=== PATIENT | male | born 1980 | race Two or more races ===

== ENCOUNTER 2017-12-24 18:57 | Emergency (ER) | payer MEDICAID ==
[~2017-12-24] VITALS: Ht 170.2 cm; Wt 72.6 kg
[2017-12-24 19:30] VITALS: BP 108/68
--- NOTE | 2017-12-24 19:54 | Emergency Room Report ---
History of Present Illness General Chief Complaint: Flu Like Symptoms Source: EMS Present Illness HPI 37-year-old male presents to the emergency department complaining of swelling, tenderness and pain in the right side of his lower jaw 5 days. Patient reports that he is now also having nausea. Patient denies episodes of vomiting. Patient denies abdominal pain, tenderness, constipation or diarrhea. Patient reports generalized malaise. He does not give much detail about history of present illness and ROS therefore patient has poor cooperation. He also gives different answers to the same questions asked by Provider and RN. He denies fevers reports some chills. Denies pain with swallowing HPI and ROS limited due to poor pt. cooperation and little to no detail regarding symptoms. Allergies: Coded Allergies: No Known Allergies (Unverified , 12/24/17) Patient History Past Medical History: see triage record Past Surgical History: unable to obtain Pertinent Family History: unable to obtain Reviewed Nursing Documentation: PMH: Agreed; PSxH: Agreed Nursing Documentation-PMH Past Medical History: No History, Except For Hx Neurological Problems: Yes - DEPRESSION Review of Systems All Other Systems: limited - poor pt. cooperation, limited details. Physical Exam Vital Signs Date Time Temp Pulse Resp B/P (MAP) Pulse Ox O2 Delivery O2 Flow Rate FiO2 12/24/17 18:58 99.8 110 20 108/68 98 Room Air 99.9 Sp02 EP Interpretation: reviewed, normal General Appearance: no apparent distress, alert, GCS 15, non-toxic, mild distress Head: normocephalic, atraumatic ENT: hearing grossly normal, normal pharynx, normal voice, TMs + canals normal , uvula midline, moist mucus membranes, other - swelling, palpable/fluctuant area of the right lower gumline, notable ST swelling externally to the right lower jaw area, no trismus, pulpitis of lower right premolar. no ttp under the tongue, no swelling noted of the neck . Neck: full range of motion, no meningismus, no bony tend Respiratory: lungs clear, normal breath sounds, speaking full sentences Cardiovascular #1: regular rate, rhythm, tachycardia Gastrointestinal: normal bowel sounds, non tender, soft, non-distended, no guarding Rectal: deferred Musculoskeletal: back normal, gait/station normal, normal range of motion, non- tender Neurologic: alert, oriented x3, responsive, motor strength/tone normal, sensory intact, speech normal, grossly normal Psychiatric: judgement/insight normal Skin: normal color, no rash, warm/dry, well hydrated Lymphatic: other - bilateral subparotid LAD Medical Decision Making PA Attestation Dr. Garber is my supervising Physician whom patient management has been discussed with. Diagnostic Impression: Primary Impression: Dental abscess Additional Impression: Nausea ER Course 37-year-old male presents to the emergency department complaining of swelling, tenderness and pain in the right side of his lower jaw 5 days. Patient reports that he is now also having nausea. Patient denies episodes of vomiting. Patient denies abdominal pain, tenderness, constipation or diarrhea. Patient reports generalized malaise. He does not give much detail about history of present illness and ROS therefore patient has poor cooperation. He also gives different answers to the same questions asked by Provider and RN. He denies fevers reports some chills. Denies pain with swallowing HPI and ROS limited due to poor pt. cooperation and little to no detail regarding symptoms. Ddx considered but are not limited to cellulitis, dental abscess, orbital cellulitis, d/l tooth, dental pain. trigeminal neuralgia. viral syndrome, GE, appendicitis, sepsis just to name a few. Vital signs: are WNL, pt. is afebrile H&PE are most consistent with dental abscess. with gum fluctuance and swelling. possible viral syndrome. pt. does not detail other symptoms initially mentioned on original cc/ hpi. ORDERS: none required at this time, the diagnosis is clinical ED INTERVENTIONS: -PCN IM 2.4 MIU ----I felt this patient would have poor follow-up and most likely will not follow discharge instructions therefore I wanted patient to receive a dose of IV antibiotics here however he refused. He did consent IM. -[place] PO Patient refuses incision and drainage He also does declines offer of IV antibiotics. Patient wants to be discharged with oral antibiotics only. --Encouraged patient multiple times that IND is necessary and that it is very important that he take oral antibiotics. Patient continues to decline medical recommendations. Discussed with patient that he'll be discharged with oral medications and to return immediately to emergency department with worsening or new symptoms otherwise he should follow up with a primary care provider and dentist. Patient was given both list of free dental clinics as well as free primary care clinics. DISCHARGE: At this time pt. is stable for d/c to home. Will provide printed patient care instructions, and any necessary prescriptions. Care plan and follow up instructions have been discussed with the patient prior to discharge. Last Vital Signs Date Time Temp Pulse Resp B/P (MAP) Pulse Ox O2 Delivery O2 Flow Rate FiO2 12/24/17 18:58 99.8 110 20 108/68 98 Room Air 99.9 Disposition: HOME, SELF-CARE Condition: Stable Scripts Ondansetron Odt* (ZOFRAN ODT*) 8 Mg Tab.rapdis 4 MG ORAL Q6H PRN for Nausea & Vomiting, #10 TAB Prov: Dayna Zamarripa 12/24/17 Ibuprofen* (MOTRIN*) 600 Mg Tablet 600 MG ORAL THREE TIMES A DAY, #20 TAB 0 Refills Prov: Dayna Zamarripa 12/24/17 Amoxicillin* (AMOXIL*) 500 Mg Capsule 500 MG ORAL EVERY 8 HOURS for 7 Days, #21 CAP Prov: Dayna Zamarripa 12/24/17 Referrals: [facility],REFERRING (PCP) Patient Instructions: Dental Abscess Additional Instructions: Take medications as directed. Follow up with a DENTIST AND Primary Care Provider WITHIN 48 HOURS, even if your symptoms have resolved. --Please review list of primary care clinics, if you do not already have a primary care provider Return sooner to ED if new symptoms occur, or current symptoms become worse OR if you Change your mind and would like us to Incise and Drain the abscess as recommended to you. - Please note that this Emergency Department Report was dictated using [employer] chill technician technology software, occasionally this can lead to erroneous entry secondary to interpretation by the dictation equipment. Dayna Zamarripa December 24, 2017 19:54
[2017-12-24] MEDS ORDERED: HYDROcodone/Acetamin 7.5/325 tab ORAL ONE (20:00)
[2017-12-24] MEDS ORDERED: Bicillin LA 2,400,000 units IM ONE (20:30)
[2017-12-24] MEDS ORDERED: ZOFRAN ODT8 MG ORAL (20:48)
[2017-12-24] MEDS ORDERED: AMOXICILLIN500 MG ORAL (20:48)
[2017-12-24] MEDS ORDERED: IBUPROFEN600 MG ORAL (20:48)
[2017-12-24 21:18] VITALS: BP 112/77
== END 2017-12-24 21:08 | disposition home or self-care (01) ==
LOC: EDBD 18:57 → EMR 19:29
DX: K04.7 Periapical abscess without sinus (principal); R11.0 Nausea; F32.9 Major depressive disorder, single episode, unspecified
CPT/HCPCS: 99284

== ENCOUNTER 2017-12-28 07:28 | Emergency (ER) | payer MEDICAID ==
[~2017-12-28] VITALS: Ht 172.7 cm; Wt 77.1 kg
[~2017-12-28 07:28] MED LIST: AMOXICILLIN500 MG ORAL; IBUPROFEN600 MG ORAL; ZOFRAN ODT8 MG ORAL
[2017-12-28 07:30] VITALS: BP 110/80
--- NOTE | 2017-12-28 08:04 | Emergency Room Report ---
History of Present Illness General Chief Complaint: Toothache Source: Patient Present Illness HPI Patient was brought in by paramedics for swelling to the right lower dental region He reports that this is been ongoing for the past 5 days Pain is worse with touch Denies any difficulty swallowing denies any chest pain Also biting is causing more discomfort Patient had dental problems in the past however cannot specify Denies any neck pain or photophobia denies any trismus Pain is 6 out of 10 localized to the lower dental region Allergies: Coded Allergies: No Known Allergies (Unverified , 12/24/17) Patient History Past Medical History: see triage record Pertinent Family History: none Reviewed Nursing Documentation: PMH: Agreed; PSxH: Agreed Nursing Documentation-PMH Past Medical History: No Stated History Hx Neurological Problems: Yes - DEPRESSION Review of Systems All Other Systems: negative except mentioned in HPI Physical Exam Vital Signs Date Time Temp Pulse Resp B/P (MAP) Pulse Ox O2 Delivery O2 Flow Rate FiO2 12/28/17 07:20 98.1 72 16 110/80 97 Room Air 98.1 Sp02 EP Interpretation: reviewed, normal General Appearance: well appearing, no apparent distress Head: normocephalic, atraumatic Eyes: bilateral eye PERRL, bilateral eye EOMI ENT: other - Swelling and irritation to the right lower gingival region, dental decay noted as well appearance of dental abscess Neck: full range of motion, supple Respiratory: lungs clear Cardiovascular #1: regular rate, rhythm Gastrointestinal: non tender Musculoskeletal: normal inspection Neurologic: alert, oriented x3, responsive Skin: normal color, other - Swelling to the right lower mandibular region Lymphatic: no adenopathy Medical Decision Making Diagnostic Impression: Primary Impression: Dental abscess ER Course Patient has clinical findings consistent with likely dental abscess Does not appear septic or toxic There is no signs of any trismus patient was provided with antibiotics and pain medication and requires close outpatient follow-up Last Vital Signs Date Time Temp Pulse Resp B/P (MAP) Pulse Ox O2 Delivery O2 Flow Rate FiO2 12/28/17 07:30 98.1 16 110/80 97 Room Air 98.1 12/28/17 07:20 72 Status: improved Disposition: HOME, SELF-CARE Condition: Stable Scripts Ibuprofen* (MOTRIN*) 600 Mg Tablet 600 MG ORAL Q8H PRN for For Pain, #20 TAB 0 Refills Prov: Jerod English DO 12/28/17 Amoxicillin/Potassium Clav 875-125* (AUGMENTIN 875-125 TABLET*) 1 Each Tablet 1 TAB ORAL TWICE A DAY, #20 TAB Prov: Jerod English DO 12/28/17 Additional Instructions: Patient is provided with the discharge instructions notified to follow up with primary doctor in the next 2-3 days otherwise return to the er with any worsening symptoms. Please note that this report is being documented using [employer] technology. This can lead to erroneous entry secondary to incorrect interpretation by the dictating instrument. Jerod English DO December 28, 2017 08:04
[2017-12-28] MEDS ORDERED: AUGMENTIN 875-1 EAC1 ORAL (08:05)
[2017-12-28] MEDS ORDERED: IBUPROFEN600 MG ORAL (08:05)
[2017-12-28 08:14] VITALS: BP 110/80
[2017-12-28] MEDS ORDERED: Ketorolac 60mg Inj IM ONE (08:15)
[2017-12-28] MEDS ORDERED: Augmentin 875mg Tab ORAL ONE (08:15)
== END 2017-12-28 08:14 | disposition home or self-care (01) ==
LOC: EDBD 07:28 → EMR 08:06
DX: K04.7 Periapical abscess without sinus (principal); F32.9 Major depressive disorder, single episode, unspecified
CPT/HCPCS: 96372; 99284

== ENCOUNTER 2018-06-03 00:06 | Emergency (ER) | payer MEDICAID ==
[~2018-06-03] VITALS: Ht 167.6 cm; Wt 74.8 kg
[~2018-06-03 00:06] MED LIST changes: +AUGMENTIN 875-1 EAC1 ORAL
[2018-06-03 00:27] VITALS: BP 116/72
[2018-06-03 00:50] VITALS: BP 116/72
--- NOTE | 2018-06-03 00:50 | Emergency Room Report ---
History of Present Illness General Chief Complaint: Pain Source: Patient Present Illness HPI Is a 38-year-old male with no past mental history. He presents with dental pain. He said he noticed swelling last night. Now is worse. Pain is 8 out of 10. History of dental infection the past. No nausea no vomiting no fever chills. Pain localized to the left lower molar area. No drainage. Nothing made it better. Nothing made it worse. Allergies: Coded Allergies: No Known Allergies (Unverified , 12/24/17) Patient History Past Medical History: see triage record, old chart reviewed Past Surgical History: other Pertinent Family History: none Social History: Denies: drug use Immunizations: other Reviewed Nursing Documentation: PMH: Agreed; PSxH: Agreed Nursing Documentation-PMH Past Medical History: No History, Except For Hx Neurological Problems: Yes - DEPRESSION Review of Systems Eye: Denies: eye pain, blurred vision ENT: Denies: ear pain, nose congestion, throat swelling Respiratory: Denies: cough, shortness of breath Cardiovascular: Denies: chest pain, palpitations Gastrointestinal: Denies: abdominal pain, diarrhea, nausea, vomiting Musculoskeletal: Denies: back pain, joint pain Skin: Denies: rash Neurological: Denies: headache, numbness Endocrine: Denies: increased thirst, increased urine Hematologic/Lymphatic: Denies: easy bruising All Other Systems: negative except mentioned in HPI Physical Exam Vital Signs Date Time Temp Pulse Resp B/P (MAP) Pulse Ox O2 Delivery O2 Flow Rate FiO2 06/03/18 00:16 99.1 126 18 116/72 98 Room Air 99.1 vitals with tachycardia Sp02 EP Interpretation: reviewed, normal General Appearance: well appearing, no apparent distress, alert Head: normocephalic, atraumatic Eyes: bilateral eye PERRL, bilateral eye EOMI ENT: hearing grossly normal, normal pharynx, other - He has poor dentition. There is no abscess to the left lower molars area. Neck: full range of motion, supple, no meningismus Respiratory: chest non-tender, lungs clear, normal breath sounds Cardiovascular #1: regular rate, rhythm, no murmur Gastrointestinal: normal bowel sounds, non tender, no mass, no organomegaly, no bruit, non-distended Musculoskeletal: back normal, gait/station normal, normal range of motion Psychiatric: mood/affect normal Skin: warm/dry Medical Decision Making Diagnostic Impression: Primary Impression: Dental abscess ER Course Patient with a dental abscess. Initially when I walked in the room, he was eating chips. I had nursing staff set up suction sodium do an I and D. At this point several sick patients came in, including a rapid A. fib, chest pain, and overdose. Patient was complaining that he came in before them so he should be seen first. Explained to him that this condition is stable and there are sick her patient in front of him. Patient said that on taking up to much of his time that he will leave. I explained to him his condition will get worse last to get I and D. Patient was using profanity and walked out. Last Vital Signs Date Time Temp Pulse Resp B/P (MAP) Pulse Ox O2 Delivery O2 Flow Rate FiO2 06/03/18 00:27 99.0 100 14 116/72 96 Room Air 99.0 Status: unchanged Disposition: AGAINST MEDICAL ADVICE Condition: Stable Harsh Walter MD Jun 03, 2018 00:50
== END 2018-06-03 01:11 | disposition left against medical advice (07) ==
LOC: EMR 00:46
DX: K04.7 Periapical abscess without sinus (principal); F32.9 Major depressive disorder, single episode, unspecified
CPT/HCPCS: 99282

== ENCOUNTER 2018-10-02 15:08 | Emergency (ER) | payer MEDICAID ==
[~2018-10-02] VITALS: Ht 172.7 cm; Wt 72.6 kg
[2018-10-02] MEDS ORDERED: NKM (15:13)
[2018-10-02 15:26] VITALS: BP 138/64
--- NOTE | 2018-10-02 15:30 | NUR ---
ED Nurse Note: pt brought by ambulance c/o Lt great toe pain 06/[address] pt aao x4 and dry and dishevelled looking noted. Vital sign stable. Lt big toe is swallen and red, warm to touch. per pt, he stepped on glass about 6 months ago and it started since then. per pt, it hurts only when he bends toes and foot.
--- NOTE | 2018-10-02 15:51 | Emergency Room Report ---
History of Present Illness General Chief Complaint: Skin Rash/Abscess Source: Patient Present Illness HPI 8-year-old male patient presents the ER brought in by ambulance complaining of left foot pain for the past 4 days. Reports "I have an infection". Reports is been walking barefoot for the past 4 days. Reports feet began to swell and become red. Reports able to move toes however painful to do so. Reports history of injury "several months ago" when he kicked a piece of fiberglass. States did not have imaging at that time. Reports not taking medication for relief of symptoms. Denies fever, chest pain, shortness of breath, vomiting. Denies history of diabetes. Denies other aggravating or relieving factors. Allergies: Coded Allergies: No Known Allergies (Unverified , 12/24/17) Patient History Past Medical History: see triage record Reviewed Nursing Documentation: PMH: Agreed; PSxH: Agreed Nursing Documentation-PM Past Medical History: No Stated History Hx Neurological Problems: Yes - DEPRESSION Review of Systems All Other Systems: negative except mentioned in HPI Physical Exam Vital Signs Date Time Temp Pulse Resp B/P (MAP) Pulse Ox O2 Delivery O2 Flow Rate FiO2 10/02/18 15:08 98.4 80 18 138/64 99 Room Air Sp02 EP Interpretation: reviewed, normal General Appearance: well appearing, no apparent distress, alert, GCS 15, non- toxic Head: normocephalic, atraumatic Eyes: bilateral eye normal inspection, bilateral eye PERRL ENT: hearing grossly normal, normal pharynx, no angioedema, normal voice, uvula midline, moist mucus membranes Neck: full range of motion Respiratory: lungs clear, normal breath sounds, no rhonchi, no respiratory distress, no accessory muscle use, no wheezing, speaking full sentences Cardiovascular #1: regular rate, rhythm, no edema Cardiovascular #2: 2+ dorsalis pedis (R), 2+ dorsalis pedis (L) Musculoskeletal: back normal, digits/nails normal, gait/station normal, normal range of motion, non-tender, other - cap refill <2seconds, NVI Skin: other - Left distal foot over dorsum of foot and toes: Erythema and edema , weeping lesions, onychomycosis, no warmth to touch Medical Decision Making PA Attestation Dr. Garber is my supervising Physician whom patient management has been discussed with. Diagnostic Impression: Primary Impression: Cellulitis Additional Impression: Onychomycosis ER Course Pt. presents to the ED c/o foot infection. Ddx considered but are not limited to rash, cellulitis, abscess, fungal infection, onychomycosis, fracture, sprain, contusion, septic joint. Vital signs: are WNL, pt. is afebrile ER COURSE X-ray of the left foot shows no acute fracture per the preliminary reading. No warmth to touch, no fever, low suspicion for septic joint. Physical exam consistent with cellulitis. Will treat patient with antibiotics as an outpatient. Advised on wound check in 2 3 days. Needs wound check in 2-3 days, return to the ER sooner/immediately begins fever or worsening of swelling and erythema symptoms. Follow-up with worldwide chief creative officer for onychomycosis, will provide patient with topical antifungal medication. ER precautions given. Seen and evaluated by Dr. Garber, agrees with assessment and treatment plan. DISCHARGE: -Rx provided for Keflex -Rx provided for Bactrim Rx provide for clotrimazole At this time pt. is stable for d/c to home. Patient resting comfortably in no acute distress, nontoxic appearing. Will provide printed patient care instructions, and any necessary prescriptions. Patient instructed to complete current course of antibiotics. Care plan and follow up instructions have been discussed with the patient prior to discharge. Patient instructed to follow-up with primary care provider in 3 - 5 days and discuss further referral to technical services assistant and vascular physician. Patient questions asked and answered. ER precautions given. Patient instructed to return to ER immediately for any new or worsening of symptoms including but not limited to increasing SOB, persistent fever, intractable vomiting, calf pain. - Please note that this Emergency Department Report was dictated using [employer] messenger technology software, occasionally this can lead to erroneous entry secondary to interpretation by the dictation equipment. Other X-Ray Diagnostic Results Other X-Ray Diagnostic Results : X-Ray ordered: Left foot # of Views/Limited Vs Complete: 3 View Indication: Pain EP Interpretation: Yes PA Xray: Interpretation reviewed, by supervising MD, and agrees with findings. Interpretation: no dislocation, no soft tissue swelling, no fractures Impression: No acute disease MACK ScribSena Henderson PA-C Last Vital Signs Date Time Temp Pulse Resp B/P (MAP) Pulse Ox O2 Delivery O2 Flow Rate FiO2 10/02/18 15:26 98.4 87 18 138/64 99 Room Air Disposition: HOME, SELF-CARE Condition: Stable Scripts Clotrimazole* (LOTRIMIN*) 15 Gm Cream..g. 1 APPLIC TOPIC TWICE A DAY, #14 GM Prov: Isiah Henderson 10/02/18 Trimethoprim/Sulfamethoxazole 160/800* (BACTRIM DS TABLET*) 1 Each Tablet 1 TAB ORAL TWICE A DAY, #14 TAB Prov: Isiah Henderson 10/02/18 Cephalexin* (KEFLEX*) 500 Mg Capsule 500 MG ORAL EVERY 12 HOURS, #14 CAP 0 Refills Prov: Isiah Henderson 10/02/18 Referrals: [facility],REFERRING (PCP) Patient Instructions: Athlete's Foot, [id number], Cellulitis, [id number] Additional Instructions: Followup with primary care provider or return to ER in 2-3 days for wound check. Follow-up with worldwide chief creative officer. Take medications as directed. Patient questions asked and answered. ER precautions given, patient instructed to return to ER immediately for any new or worsening of symptoms. Isiah Henderson Oct 02, 2018 15:51
[2018-10-02] MEDS ORDERED: BACTRIM DS TAB1 EAC1 ORAL (16:07)
[2018-10-02] MEDS ORDERED: CLOTRIMAZOLE15 GM TOPIC (16:07)
[2018-10-02] MEDS ORDERED: CEPHALEXIN500 MG ORAL (16:07)
--- NOTE | 2018-10-02 16:42 | Diagnostic Imaging Report ---
Indication: Foot pain Comparison: None Findings: 3 views of the left foot were obtained. No acute fractures, malalignment, erosions or periostitis are identified. Soft tissues are unremarkable. Impression: No acute findings
--- NOTE | 2018-10-02 16:49 | NUR ---
ED Nurse Note: Received verbal order for pt ok to eat. pt requested sandwich and provided.
--- NOTE | 2018-10-02 17:00 | NUR ---
ED Nurse Note: Patient has preferred pharmacy, updated information.
--- NOTE | 2018-10-02 17:34 | NUR ---
ED Nurse Note: Wendi at [facility] pharmacy confirmed that they received the 3 prescriptions and pt was told to go and pick the medications up. pt verbalized understanding. id band removed, pt stable, and ambulated to be discharged. Addendum: 10/02/18 at 1737 by [email or web address] ED Nurse Note: Wendi at [facility] pharmacy confirmed that they received the 3 prescriptions and pt was told to go and pick the medications up. pt verbalized understanding. id band removed, pt stable, and ambulated to be discharged. Pt reported the place to go after discharge and will take a bus. pt aao x4 and wearing weather appropriate clothing.
--- NOTE | 2018-10-02 17:35 | NUR ---
ED Nurse Note: Patient is being discharged, cleared by ER PA . Patient is a/o x4, discharge instruction/paper given to the patient, patient verbalized understanding and signed the paper. ID band removed. Patient ambulated out of ED with steady gait with all belongings. patient's prescribed medication has been sent to patient's preferred pharmacy. [place]/juice/water provided for the patient. Size 10 shoes and socks was provided to the patient as patient requested. patient stated that the shoes are comfortable.
--- NOTE | 2018-10-02 17:36 | NUR ---
ED Nurse Note: bus tap card provided to the patient. patient vebalized understanding to take the prescribed medication as ordered.
[2018-10-02 17:47] VITALS: BP 138/64
== END 2018-10-02 17:35 | disposition home or self-care (01) ==
LOC: EDBD 15:08 → EMR 15:19
DX: L03.116 Cellulitis of left lower limb (principal); B35.1 Tinea unguium; F32.9 Major depressive disorder, single episode, unspecified
CPT/HCPCS: 99283

== ENCOUNTER 2018-10-30 16:21 | Emergency (ER) | payer MEDICAID ==
[~2018-10-30] VITALS: Ht 170.2 cm; Wt 72.6 kg
[~2018-10-30 16:21] MED LIST changes: +BACTRIM DS TAB1 EAC1 ORAL; +CEPHALEXIN500 MG ORAL; +CLOTRIMAZOLE15 GM TOPIC; +NKM
--- NOTE | 2018-10-30 17:00 | NUR ---
ED Nurse Note: pt walked in to ER c/o general body pain with numbness 12/02. pt aao x 4 and hyegine issue noted. skin clean and intact.
[2018-10-30 17:06] VITALS: BP 109/72
--- NOTE | 2018-10-30 17:35 | NUR ---
ED Nurse Note: pt spoke to the doctor and eloped as stating "I want female doctor!!" pt ambulatory with steady gait and refused to answer where he is going. pt is wearing weather appropriate clothes.
--- NOTE | 2018-10-30 21:08 | Emergency Room Report ---
History of Present Illness General Chief Complaint: General Complaint Source: Patient Present Illness HPI 38-year-old male presents ED for evaluation. Patient states that he cannot feel his arms and legs. Patient walked into ED and walked to the room. Patient would not specify how long these symptoms have been going on stating "I already told this to the nurse". Denies slurred speech or facial droop. Denies SI or HI. Denies drug use. Denies alcohol use. No other aggravating relieving factors. Denies any other associated symptoms Allergies: Coded Allergies: No Known Allergies (Unverified , 12/24/17) Patient History Past Medical History: psych hx Past Surgical History: none Pertinent Family History: none Social History: Denies: smoking, alcohol use, drug use Immunizations: UTD Reviewed Nursing Documentation: PMH: Agreed; PSxH: Agreed Nursing Documentation-PMH Past Medical History: No Stated History Hx Neurological Problems: Yes - DEPRESSION Review of Systems All Other Systems: negative except mentioned in HPI Physical Exam Vital Signs Date Time Temp Pulse Resp B/P (MAP) Pulse Ox O2 Delivery O2 Flow Rate FiO2 10/30/18 17:00 97.2 108 16 99/57 99 Room Air Sp02 EP Interpretation: reviewed, normal General Appearance: no apparent distress, alert, GCS 15, non-toxic Head: normocephalic, atraumatic Eyes: bilateral eye normal inspection, bilateral eye PERRL, bilateral eye EOMI ENT: hearing grossly normal, normal pharynx, no angioedema, normal voice Neck: full range of motion, supple/symm/no masses Respiratory: chest non-tender, lungs clear, normal breath sounds, speaking full sentences Cardiovascular #1: regular rate, rhythm, no edema Cardiovascular #2: 2+ carotid (R), 2+ carotid (L), 2+ radial (R), 2+ radial (L) , 2+ dorsalis pedis (R), 2+ dorsalis pedis (L) Gastrointestinal: normal bowel sounds, non tender, soft, non-distended, no guarding, no rebound Rectal: deferred Genitourinary: normal inspection, no CVA tenderness Musculoskeletal: back normal, gait/station normal, normal range of motion, non- tender Neurologic: alert, oriented x3, responsive, contact printer dry film III-XII nml as tested, motor strength/tone normal, sensory intact, cerebellar normal, normal gait, speech normal Psychiatric: judgement/insight normal, memory normal, mood/affect normal, no suicidal/homicidal ideation Reflexes: 3+ bicep (R), 3+ bicep (L), 3+ tricep (R), 3+ tricep (L), 3+ knee (R) , 3+ knee (L) Skin: normal color, no rash, warm/dry, well hydrated Lymphatic: no adenopathy Medical Decision Making Diagnostic Impression: Primary Impression: Encounter for generalized patient complaints ER Course 38-year-old male presents to ED complaining of numbness in his arms and legs Differentialpsychosis, dehydration, electrolyte abnormality, CVA Patient placed on stretcher. After initial history physical exam reveals male in no acute distress. There is 5 out of 5 motor strength in all extremities. Moving all extremities purposefully. No slurred speech or facial droop. Cranial nerves II through XII grossly intact. Vital stable. There is no indication of a focal neurological deficit. I agreed to check labs Nursing reports that patient grabbed his items eloped from ED. Walking with a steady gait. Last Vital Signs Date Time Temp Pulse Resp B/P (MAP) Pulse Ox O2 Delivery O2 Flow Rate FiO2 10/30/18 17:06 98 14 Room Air 10/30/18 17:06 98.2 109/72 98 Status: improved Disposition: ELOPED Condition: Stable Campos Devi MD Oct 30, 2018 21:08
== END 2018-10-30 17:45 | disposition left against medical advice (07) ==
LOC: EMR 17:37
DX: Z71.1 Person with feared health complaint in whom no diagnosis is made (principal)
CPT/HCPCS: 99281